=== PATIENT | male | born 1970 | race Caucasian/White ===

== ENCOUNTER 2024-02-09 13:57 | Inpatient (IN) | payer OTHER, SELFPAY ==
[2024-02-09 15:25] LABS: #Basophils 0.09 10x3/uL (0.0-0.2); #Eosinphils 0.14 10x3/uL (0.0-0.5); #Monocytes 1.66 10x3/uL (0.0-1.1); #Neutrophils 12.06 10x3/uL (1.5-8.4); %Basophils 0.5 % (0.0-2.0); %Eosinophils 0.8 % (0.0-6.0); %Lymphocytes 15.2 % (18.0-47.0); %Neutrophils 72.7 % (40.0-75.0); Hematocrit 39.6 % (38.8-50.0); Hemoglobin 13.6 g/dL (13.5-17.5); Mean Corpuscular HGB CONC 34.3 g/dL (32.0-36.0); Mean Corpuscular Hemoglobin 31.3 pg (27.0-33.0); Mean Platelet Volume 8.7 fL (7.4-10.4); Platelet Count 414 10x3/uL (150-450); Red Blood Cell (RBC) Count 4.35 10x6/uL (4.32-5.72); White Blood Cell (WBC) Count 16.6 10x3/uL (3.5-10.5)
[2024-02-09] MEDS ORDERED: Piperacillin/Tazobactam 3.375 GM VIAL ONE (15:31)
[2024-02-09 15:38] LABS: ALT (SGPT) 10 U/L (8-55); AST (SGOT) 12 U/L (5-34); Albumin 3.1 g/dL (3.5-5.0); Alkaline Phosphatase 73 U/L (40-110); Anion Gap 16 mmol/L (10-20); BUN (Urea Nitrogen) Less than 4 mg/dL (8.4-25.7); Bilirubin, Total 0.6 mg/dL (0.2-1.2); Calc. Creatinine Clearance 0 mL/min (70-130); Calcium 9.1 mg/dL (7.8-10.44); Carbon Dioxide 26 mmol/L (22-29); Chloride 88 mmol/L (98-107); Estimated GFR 111; Globulin 3.5 g/dL (2.4-3.5); Glucose 106 mg/dL (70-105); Potassium 3.7 mmol/L (3.5-5.1); Protein, Total 6.6 g/dL (6.0-8.3); Sodium 126 mmol/L (136-145)
[2024-02-09] MEDS ORDERED: hydrALAZINE 20 MG/ML VIAL SLOW IVP PRN (17:58)
[2024-02-09] MEDS ORDERED: Morphine 2 MG/ML VIAL SLOW IVP PRN (17:58)
[2024-02-09] MEDS ORDERED: Ondansetron ODT 4 MG TAB PO PRN (17:58)
[2024-02-09] MEDS ORDERED: Ondansetron PF 4 MG/2 ML Vial IVP PRN (17:58)
[2024-02-09] MEDS ORDERED: Ketorolac Tromethamine 30 MG (1 mL) VIAL IVP PRN (18:01)
[2024-02-09] MEDS: Pantoprazole DR 40 MG TAB PO SCH (18:36)
[2024-02-09] MEDS: GoLYTELY 4,000 ml Bottle PO SCH (18:37)
[2024-02-09] MEDS: Magnesium Citrate 300 ML BOT PO SCH (18:37)
[2024-02-09 19:26] VITALS: BMI 20.1
[2024-02-09] MEDS: Piperacillin/Tazobactam 3.375 GM in Sodium Chloride 0.9% 100 ML IVPB SCH (20:30)
[2024-02-09] MEDS: NS 0.9% w/ 20 MEQ KCL 1,000 ML/1,000 ML BAG IV SCH (20:30)
[2024-02-09] MEDS: Enoxaparin 40 MG (0.4 mL) SYRINGE SC SCH (20:31)
[2024-02-09] MEDS: Acetaminophen 500 MG TAB PO SCH (20:31)
[2024-02-10 03:39] LABS: #Basophils 0.09 10x3/uL (0.0-0.2); #Monocytes 1.76 10x3/uL (0.0-1.1); #Neutrophils 12.58 10x3/uL (1.5-8.4); %Basophils 0.5 % (0.0-2.0); %Eosinophils 0.6 % (0.0-6.0); %Lymphocytes 15.2 % (18.0-47.0); %Monocytes 10.2 % (0.0-10.0); %Neutrophils 72.9 % (40.0-75.0); Hematocrit 39.6 % (38.8-50.0); Hemoglobin 13.7 g/dL (13.5-17.5); Mean Corpuscular HGB CONC 34.6 g/dL (32.0-36.0); Mean Corpuscular Hemoglobin 31.4 pg (27.0-33.0); Mean Corpuscular Volume 90.8 fL (81.2-95.1); Mean Platelet Volume 8.6 fL (7.4-10.4); Platelet Count 412 10x3/uL (150-450); RBC Distribution Width 11.9 % (11.5-14.5); Red Blood Cell (RBC) Count 4.36 10x6/uL (4.32-5.72); White Blood Cell (WBC) Count 17.3 10x3/uL (3.5-10.5)
[2024-02-10 03:54] LABS: ALT (SGPT) 9 U/L (8-55); AST (SGOT) 10 U/L (5-34); Albumin 2.8 g/dL (3.5-5.0); Alkaline Phosphatase 65 U/L (40-110); Anion Gap 15 mmol/L (10-20); BUN (Urea Nitrogen) Less than 4 mg/dL (8.4-25.7); Bilirubin, Total 0.6 mg/dL (0.2-1.2); Calc. Creatinine Clearance 121 mL/min (70-130); Calcium 8.8 mg/dL (7.8-10.44); Carbon Dioxide 24 mmol/L (22-29); Chloride 100 mmol/L (98-107); Estimated GFR 112; Globulin 3.3 g/dL (2.4-3.5); Glucose 106 mg/dL (70-105); Potassium 3.9 mmol/L (3.5-5.1); Protein, Total 6.1 g/dL (6.0-8.3); Sodium 135 mmol/L (136-145)
[2024-02-10] MEDS: Nicotine 21 MG PATCH TD SCH (09:32)
[2024-02-10] MEDS: Multivit, Therapeutic 1 TAB PO SCH (09:34)
[2024-02-10] MEDS: Pantoprazole DR 40 MG TAB PO SCH (09:34)
[2024-02-10] MEDS ORDERED: Lidocaine 2% MPF 10 ML AMP (For Epidural Use) ONE (11:40)
[2024-02-10] MEDS ORDERED: PROPOFOL 40 ML ONE (11:40)
[2024-02-10] MEDS ORDERED: PROPOFOL 20 ML ONE (11:55)
[2024-02-10 13:21] VITALS: BP 155/83; TEMP 98.2
[2024-02-10] MEDS ORDERED: traZODone HCl 50 MG TAB PO PRN (14:42)
[2024-02-10] MEDS ORDERED: Amoxicillin/Potassium Clav 875 MG TAB PO SCH (21:00)
[2024-02-11] MEDS ORDERED: Metamucil PACK PO SCH (09:00)
[2024-02-11] MEDS ORDERED: Polyethylene Glycol 3350 17 GM Packet PO SCH (09:00)
== END 2024-02-10 16:04 | disposition home or self-care (01) | DRG 392 ==
LOC: CSHERS 13:57 → CSHTELE 18:05
PROVIDERS: ADMIT Specialist; ATTEND Specialist
PROC: 0DBH8ZZ Excision of Cecum, Via Natural or Artificial Opening Endoscopic (ICD-10-PCS; principal; 2024-02-10)
PROC: 0DBP8ZZ Excision of Rectum, Via Natural or Artificial Opening Endoscopic (ICD-10-PCS; 2024-02-10)
PROC: 0DBN8ZX Excision of Sigmoid Colon, Via Natural or Artificial Opening Endoscopic, Diagnostic (ICD-10-PCS; 2024-02-10)
DX: K57.32 Diverticulitis of large intestine without perforation or abscess without bleeding (principal); K59.00 Constipation, unspecified; K63.89 Other specified diseases of intestine; Z71.6 Tobacco abuse counseling; F17.210 Nicotine dependence, cigarettes, uncomplicated; F10.10 Alcohol abuse, uncomplicated; K62.1 Rectal polyp; K64.8 Other hemorrhoids
CPT/HCPCS: 36415; 71046; 74176; 80053; 82378; 83605; 85025; 87040; 88305; 88341; 88342; 94760; 94762; 96374; J1650; J2543; J2704; J3480